=== PATIENT | female | born 1965 | race Caucasian/White ===

== ENCOUNTER 2016-12-22 23:40 | Observation (INO) | payer SELFPAY ==
[~2016-12-22 23:40] MED LIST: ALBU0.086 INH; ALBU1AER INH; EPIP0.3I IM; HYDR-3533 PO
[2016-12-23] VITALS: BP 147/72; PULSE 59; RESP 17; TEMP 97.7; O2SAT 98
[2016-12-23] MEDS ORDERED: NITROGLYCERIN 0.4 MG SL 25 TABS/BTL SL PRN (01:30)
[2016-12-23] MEDS ORDERED: MORPHINE SULFATE 2 MG/ML INJ IV PRN (01:45)
[2016-12-23] MEDS ORDERED: ACETAMINOPHEN 500 MG CPLT PO PRN (01:45)
[2016-12-23] MEDS: NITROGLYCERIN 2% OINT 1 GM PACKET TOPICAL SCH ×3 (02:34→08:16)
[2016-12-23 04:00] VITALS: BP 115/59; PULSE 64; RESP 16; TEMP 98.1; O2SAT 95
[2016-12-23 08:12] VITALS: BP 140/65; PULSE 59; RESP 17; TEMP 98.4; O2SAT 97
--- NOTE | 2016-12-23 09:28 | HHI.HP ---
HPI Primary Care Physician No Primary Care Physician Chief Complaint Chest pain History of Present Illness 51-year-old female with history of GERD and cervical cancer (2011) since the emergency room for further evaluation of chest pain. Onset Monday evening. Location left inframammary area with radiation to left anterior chest. Characterized initially as a sharp pain, changing character Monday to a dull pain. No associated symptoms of nausea, vomiting, or diaphoresis. Reported "possible mild shortness of breath." No known precipitating or relieving factors. No particular movement or position may pain better or worse. Deep breathing did not effect pain. Denies similar pain in the past. Duration has waxed and waned in intensity and Monday evening. Initially, believed pain due to indigestion. Took 3 Rolaids and 3 Tums without relief. Currently she is chest pain-free, stating pain went away while sleeping last evening. Monday left work early to due chest discomfort. When driving home reported losing vision in right eye, described as "spotting vision of black and yellow spots for 15-20 minutes." No history of headaches or migraines. Vision resolved within 15-20 minutes followed by a frontal headache. Headache resolved. Denies similar episodes in the past. Review of Systems General: No fatigue,weakness, fever, chills, recent illness, or change in appetite. His been her general state of health. HEENT: No current RADFORD, no vision changes. Reported headache with nitro paste which as since resolved. CV: No current CP or pressure. No history of CAD. RESP: No SOB, cough, or recent URI. Reports current clear, thin sputum production since yesterday, history of asthma. States asthma well controlled and does not require frequent rescue inhaler or use of nebulizers. GI: No nausea, vomiting, bowel changes. Possible history of diverticulosis due to reported problem with "a seed was stuck in a pocket of my colon." Last month reports x1 BM with blood in the stool. No unintentional weight gain or weight loss. : No dysuria, urgency, frequency, or history of kidney stones. 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 EXT: Frequent bilateral lower leg dependent edema resolves no paraesthesias MS: No discomfort or change in ROM. NEURO: No difficulty with balance, LOC, motor/sensory deficits PSYCH: No anxiety, depression, or situational stress SKIN: No rashes, no concerning lesions Past Family Social History Allergies: Coded Allergies: bee venom protein (honey bee) (Unverified Allergy, Severe, shortness of breath and swelling, 12/22/16) Uncoded Allergies: ORANGE JUICE (Allergy, Intermediate, HIVES, 12/22/16) PT STATES PROCESSED ORANGE JUICE GIVES HER THE PROBLEM, CAN EAT FRESH ORANGES. Past Medical History Cervical cancer-chemotherapy 2011, GERD, asthma Past Surgical History Left hand surgery 15 years ago, multiple cervical spine surgeries between 2012- 2014 Reported Medications Reported Meds & Active Scripts Active No Active Prescriptions or Reported Medications No vitamins or supplements Active Ordered Medications Current Medications Medications (Trade) Dose Ordered Sig/Samantha Route Start Time Stop Time Status Last Admin (Nitroglycerin 2% Oint) 0.5 inch Q6H TOPICAL 12/23/16 02:00 12/23/16 02:34 (Nitrostat Sl) 0.4 mg Q5M PRN SL 12/23/16 01:30 (Morphine Inj) 2 mg Q4H PRN IV 12/23/16 01:45 (Tylenol) 500 mg Q6H PRN PO 12/23/16 01:45 12/23/16 08:11 Family History Noncontributory for early onset cardiovascular disease. Social History No known hypertension, diabetes, hyperlipidemia, or coronary artery disease. Former smoker, quit smoking 2 years ago. Smoked half pack daily 15 years. Denies any alcohol or illegal drug use. Endorses active lifestyle. works a full-time and part-time job. Past cardiac testing None Physical Exam Vital Signs Vital Signs Date Time Temp Pulse Resp B/P (MAP) Pulse Ox O2 Delivery O2 Flow Rate FiO2 12/23/16 08:12 98.4 59 17 140/65 (90) 97 12/23/16 04:00 98.1 64 16 115/59 (77) 95 12/23/16 00:00 97.7 59 17 147/72 (97) 98 Physical Exam GENERAL: Alert WN, WD, NAD, pleasant, obese, female who appears older than stated age. HEAD: NC, AT EYES: Sclera clear, conjunctiva without injection, Pupils equal and reactive. ENT: Mucous membranes pink and moist NECK: Supple, no masses, trachea midline CV: RRR, without murmur, rub, gallop, no JVD, S1-S2 no S3-S4. Chest pain not reproduced with palpation, however chest wall tenderness with palpation. RESP: Inspiratory and expiratory wheeze, no crackles or rhonchi. symmetrical chest rise, nonlabored, able to speak in full sentences ABD: Soft, NT, ND, no masses, positive bowel tones, obese EXT: Pulses +24, +2 bilateral lower dependent edema, bilateral lower extremity varicosities MS: Normal tone 4 extremities, no obvious deformities, full range of motion NEURO: CN II through CN XII grossly intact, motor strength 5/5 PSYCH: A+O 3, pleasant affect, appropriate speech, appropriate mood and affect , insight and judgment SKIN: Normal turgor, normal texture, no lesions, no rashes, brisk cap refill Laboratory Laboratory Tests Test 12/23/16 02:00 Troponin I LESS THAN 0.02 Imaging Chest x-ray read by radiologist as normal examination. Head Ct read by radiologist as a normal examination. Course EKG Second EKG normal sinus rhythm,, no ST or T-segment changes. 3rd EKG first- degree block, no ST or T-segment changes Caprini VTE Risk Assessment Caprini VTE Risk Assessment: No/Low Risk (score <= 1) Caprini Risk Assessment Model Point Value = 1 Point Value = 2 Point Value = 3 Point Value = 5 Age 41-60 Minor surgery BMI > 25 kg/m2 Swollen legs Varicose veins or History of unexplained or recurrent spontaneous Oral contraceptives or hormone replacement Sepsis (< 1 month) Serious lung disease, including pneumonia (< 1 month) Abnormal pulmonary function Acute myocardial infarction Congestive heart failure (< 1 month) History of inflammatory bowel disease Medical patient at bed rest Age 61-74 Arthroscopic surgery Major open surgery (> 45 min) Laparoscopic surgery (> 45 min) Malignancy Confined to bed (> 72 hours) Immobilizing plaster cast Central venous access Age >= 75 History of VTE Family history of VTE Factor V Leiden Prothrombin [id number] Lupus anticoagulant Anticardiolipin antibodies Elevated serum homocysteine Heparin-induced thrombocytopenia Other congenital or acquired thrombophilia Stroke (< 1 month) Elective arthroplasty Hip, pelvis, or leg fracture Acute spinal cord injury (< 1 month) Prophylaxis Regimen Total Risk Factor Score Risk Level Prophylaxis Regimen 0-1 Low Early ambulation 2 Moderate Order ONE of the following: *Sequential Compression Device (SCD) *Heparin 5000 units SQ BID 3-4 Higher Order ONE of the following medications: *Heparin 5000 units SQ TID *Enoxaparin/Lovenox 40 mg SQ daily (WT < 150 kg, CrCl > 30 mL/min) *Enoxaparin/Lovenox 30 mg SQ daily (WT < 150 kg, CrCl > 10-29 mL/min) *Enoxaparin/Lovenox 30 mg SQ BID (WT < 150 kg, CrCl > 30 mL/min) AND/OR *Sequential Compression Device (SCD) 5 or more Highest Order ONE of the following medications: *Heparin 5000 units SQ TID (Preferred with Epidurals) *Enoxaparin/Lovenox 40 mg SQ daily (WT < 150 kg, CrCl > 30 mL/min) *Enoxaparin/Lovenox 30 mg SQ daily (WT < 150 kg, CrCl > 10-29 mL/min) *Enoxaparin/Lovenox 30 mg SQ BID (WT < 150 kg, CrCl > 30 mL/min) AND *Sequential Compression Device (SCD) Assessment and Plan Assessment and Plan #1 Atypical chest pain-admitted chest pain center. Ruled out with 3 sets of EKGs, cardiac enzymes, and monitored on telemetry overnight. Seen and evaluated by Dr. Gustavo Kilpatrick. Will completely exercise stress test this a.m. If unremarkable, without signs of ischemia plan would be to discharge home later this afternoon. Patient agreeable to plan of care. #2 Asthma-albuterol every 2 hours when necessary shortness of breath. 1 dose prior to exercise stress test. Prescription for rescue inhaler will be provided at discharge. Establish with a PCP. #3 Cephalgia-head ct normal examination. Headache resolved. Atypical for optical migraine, unsure cause of vision change and headache which has since resolved. Dr. Kilpatrick encouraged follow up with eye doctor and a formal eye exam. #4 Arthritis-chest discomfort most likely due to arthritis in chest wall. Encouraged warm heat to affected area. May try over the counter Aleve or Motrin as needed for discomfort. Encouraged to establish with a primary care provider for preventative care and medical management. Request lipid panel. Encouraged to return to ER for any further concerns. Mey Campbell Dec 23, 2016 09:28
[2016-12-23] MEDS ORDERED: ONDANSETRON HCL 4 MG/2 ML VIAL IV PUSH PRN (09:30)
[2016-12-23] MEDS ORDERED: SODIUM CHLORIDE 0.9% FLUSH 10 ML FLUSH IV FLUSH PRN (09:30)
[2016-12-23] MEDS ORDERED: RESP: ALBUTEROL 2.5 MG/3 ML NEB (PRN) NEB (09:30)
[2016-12-23 10:03] VITALS: PULSE 52
[2016-12-23 11:29] VITALS: BP 127/68; PULSE 76; RESP 20; TEMP 97.7; O2SAT 96
--- NOTE | 2016-12-23 11:46 | TR ---
Date Performed: 12/23/2016 Time Performed: 10:24:54 DOCTOR: Gustavo Kilpatrick DRUG LIST: CLINICAL HISTORY: CHEST PAIN REASON FOR TEST: REASON FOR ENDING: OBSERVATION: CONCLUSION: Modified rowdy protocol completed, speed modified. Stopped sec to reaching target he art rate and leg fatigue. Maximum DT=567 Target HR Achieved=86.0% Maximum VS=791/64 Total Exercise Ti me=6:58. No reprod chest pain. No st t segment changes to sugg ischemia. Rare PVC during recovery, on e couplet during recovery. Good exercise tolerance. BP response unremarkable. Recovery quick and unre markable. COMMENTS: Conclusion: Normal treadmill exercise. No evidence of ischemia.
[2016-12-23] MEDS ORDERED: ALBU6.7H INH (12:00)
--- NOTE | 2016-12-23 12:02 | HHI.DCPOC ---
Discharge Care Plan Diagnosis: (1) Atypical chest pain (2) History of asthma Goals to Promote Your Health * To prevent worsening of your condition and complications * To maintain your health at the optimal level Directions to Meet Your Goals Take your medications as prescribed Follow your dietary instruction Follow activity as directed Keep your appointments as scheduled Take your immunizations and boosters as scheduled If your symptoms worsen call your PCP, if no PCP go to Urgent Care Center or Emergency Room Smoking is Dangerous to Your Health. Avoid second hand smoke Call the 24-hour hour crisis hotline for domestic abuse at Mey Campbell Dec 23, 2016 12:02
[2016-12-23 12:19] VITALS: O2SAT 98
--- NOTE | 2016-12-23 14:24 | EKG ---
Date Performed: 12/23/2016 Time Performed: 00:48:24 PTAGE: 51 years EKG: Sinus rhythm WITH FIRST DEGREE AV BLOCK ABNORMAL ECG PREVIOUS TRACING : 08/08/2012 09.57 Since previous tracing, no significant change noted DOCTOR: Gustavo Kilpatrick Interpretating Date/Time 12/23/2016 14:22:21
[2016-12-23] MEDS ORDERED: SODIUM CHLORIDE 0.9% FLUSH 10 ML FLUSH IV FLUSH SCH (21:00)
[2016-12-24] MEDS ORDERED: ASPIRIN 325 MG TAB PO SCH (09:00)
== END 2016-12-23 15:02 | disposition home or self-care (01) ==
LOC: NEDDLT 23:40 → NEPGCP 23:50
PROVIDERS: ADMIT Internal Medicine Interventional Cardiology; ATTEND Internal Medicine Interventional Cardiology
DX: R07.89 Other chest pain (principal); J45.909 Unspecified asthma, uncomplicated; R51 Headache; M19.90 Unspecified osteoarthritis, unspecified site
CPT/HCPCS: 70450; 71010; 80053; 82550; 84484; 85025; 85379; 93005; 93017; 99285; G0378; J7613; 99281